=== PATIENT | female | born 1930 | race Caucasian/White ===

== ENCOUNTER 2019-09-16 19:18 | Inpatient (IN) | payer OTHER ==
[~2019-09-16] VITALS: Ht 160 cm; Wt 80.8 kg
[~2019-09-16 19:18] MED LIST: ASPIRIN81 M2 PO; SYNTHROID100 MC1 PO
[2019-09-16 19:56] VITALS: BP 131/74
[2019-09-16 22:05] LABS: BASOPHILS 1.5 % (0.0-2.0); EOSINOPHILS 1.7 % (0.0-3.0); HEMATOCRIT 36.7 % (37.0-47.0); LYMPHOCYTES 26.5 % (24.0-44.0); MCH 29.1 pg (26.0-34.0); MCHC 32.8 g/dL (28.0-37.0); MCV 88.7 fL (80.0-100.0); MONOCYTES 10.3 % (1.0-8.0); PLATELET COUNT 242 thou/uL (150-400); RBC 4.14 mil/uL (4.20-5.00); RDW 16.1 % (10.5-14.5); WBC 6.6 thou/uL (4.0-11.0)
[2019-09-16 22:17] LABS: URINE BILIRUBIN NEGATIVE (Negative); URINE BLOOD NEGATIVE (Negative); URINE CLARITY CLEAR; URINE COLOR YELLOW; URINE GLUCOSE-RANDOM* NEGATIVE (Negative); URINE KETONES NEGATIVE (Negative); URINE LEUKOCYTES-REFLEX NEGATIVE (Negative); URINE NITRITE-REFLEX NEGATIVE (Negative); URINE PROTEIN (DIPSTICK) NEGATIVE (Negative); URINE SPECIFIC GRAVITY 1.015 (1.005-1.035); URINE UROBILINOGEN 0.2 E.U./dl (0.2-1.0)
[2019-09-16 22:17] LABS: CALCIUM 9.1 mg/dL (8.5-10.1); CREATININE 1.2 mg/dL (0.6-1.0); POTASSIUM 3.9 mmol/L (3.5-5.1)
[2019-09-16 22:24] LABS: AMP/METHAMP Negative (Negative); BARBITURATES Negative (Negative); BENZODIAZEPINES Negative (Negative); COCAINE Negative (Negative); METHADONE Negative (Negative); OPIATES Negative (Negative); PCP Negative (Negative)
[2019-09-16 22:24] LABS: ALBUMIN 3.1 g/dL (3.4-5.0); DIRECT BILIRUBIN 0.1 mg/dL (<0.1-0.3); TOTAL BILIRUBIN 0.3 mg/dL (<0.1-1.0); TOTAL PROTEIN 7.6 g/dL (6.4-8.2)
[2019-09-17 00:50] VITALS: BP 134/71
[2019-09-17 01:25] VITALS: BP 138/70
--- NOTE | 2019-09-17 02:23 | NUR ---
PATIENT ADMITTED AND CAME TO [facility] BY WC WITH ER NURSE AND DAUGHTER AND SON IN LAW. DAUGHTER IS PATIENT'S DPOA. PATIENT ARRIVED AT 0130. PATIENT A/O X3. PT IS [place] AND DOES NOT OWN HEARING AIDS. PATIENT HAS TOP DENTURE THAT SHE WEARS AND NO DENTURES FOR BOTTOM GUMS. PATIENT IS VERY TIRED BUT DID ASK FOR SNACK. PATIENT GIVEN SF COOKIES AND ICECREAM. PATIENT IS CONTINENT OF B&B. PATIENT USES WALKER FOR MOBILITY IN ROOM AND SHORT DISTANCES. W/C FOR LONGER DISTANCES. VITAL SIGNS OBTAINED BY HOT WOUND SPRING PRODUCTION SUPERVISOR. WENT OVER CONSENTS AND FALL CONTRACT AND SIGNED BY DAUGHTER/DPOA. VISITATION HOURS AND CODE GIVEN TO DPOA. WELCOME PACKET TAKEN HOME BY DPOA TO REVIEW. PATIENT DOES NOT READ D/T MACULAR DEGENERATION. PATIENT ADMITTED FROM [facility] FOR SEXUAL INAPPROPRIATE BEHAVIORS AND AGITATION. PATIENT HAS BEEN TOLD BY HER PCP DR RITESH POP MD, A YEAR AGO THAT SHE DOES HAVE DEMENTIA. PATIENT WAS ADMITTED TO [facility] NOVEMBER 2018. PATIENT STARTED WITH INAPPROPRIATE BEHAVIOR 08/2019. PATIENT'S BELONGINGS INVENTORIED. PATIENT WANTS TO SLEEP IN HER CLOTHES TONIGHT. PATIENT IS USED TO SLEEPING IN A RECLINER BECAUSE SHE FEELS SAFER. I LET HER KNOW WE WILL KEEP SIDERAILS UP AND BED ALARM ON TO HELP HER FEEL SAFE FROM FALLING. SHE IS OKAY WITH THIS. PATIENT'S VSS 138/70 P68 R17 T98.3 AND 02 SAT ON ROOM AIR AT 96%. PATIENT WEIGHT IS 178.2. HT 5FT 3 IN. LBM 09/16/19. PATIENT MEDICAL HX OF DM2, HTN, HYPERTHYROID. PATIENT ON CARB CONTROL DIET AND NO ACCUCHECKS ORDERED AT THIS TIME. PATIENT HAS NKA. PATIENT HAS HAD HER THYROID REMOVED UNKNOWN DATE. PATIENT ALSO HAS 3 STENTS IN HER HEART. NO WOUNDS FOUND. DENIES PAIN. PATIENT ORIENTED TO ROOM. PATIENT IN BED FOR THE EVENING. PHYSICAL ASSESSMENT WNL. NO EDEMA. HEART REGULAR. LUNGS CTA BILAT. ORDERS AND MEDS BY DR SRIDHAR PARK AT 0100. CONSULT FOR DR SHON PARK CALLED TO [facility] AND SPOKE WITH HER AT 0250 BY PHONE. CONSULT ALSO FOR PT TO EVAL AND TREAT ALSO ORDERED. WILL CONTINUE TO MONITOR.
[2019-09-17] MEDS ORDERED: GLIPIZIDE 10 MG10 MG PO ×2 (03:15)
[2019-09-17] MEDS ORDERED: NAMENDA 5 MG TAB5 M1 PO (03:16)
[2019-09-17] MEDS ORDERED: LASIX 40 MG TAB40 MG PO (03:18)
--- NOTE | 2019-09-17 06:23 | NUR ---
PATIENT AWAKENED BY THIS NURSE AT 0615 TO PUT FALL RISK BAND ON PATIENT. PT VERY IRRITABLE FOR BEING AWAKENED. SHE DENIES PAIN AT THIS TIME. SHE STATES SHE JUST WANTS TO GET SOME MORE SLEEP. SHE HAS ONLY HAD CLOSE TO 4 HOURS. BED ALARM ON AND BED IN LOW POSITION.
[2019-09-17 08:17] VITALS: BP 148/50
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
[2019-09-17 10:47] VITALS: BP 148/50
--- NOTE | 2019-09-17 11:01 | NUR ---
ASSUMED CARE AT 0700 THIS MORNING. PT. UP, DRESSED AND ON THE UNIT SITTING QUIETLY AT A TABLE. SHE IS PLEASANT AND COOPERATIVE WITH STAFF. HER BLOOD SUGAR WAS TAKEN AND FOUND TO BE 119. TALKED TO TIANA ABOUT THIS. TIANA STATED WE NEED TO MONITOR THE BLOOD SUGAR TIMES 24 HOURS. PT. T[address] WITH DR. WALLER, 'S STUDENT, AND TIANA. SHE ATTENDED GROUPS WHEN NOT WITH OR ANOTHER PERSON. SHE TOOK HER MEDICATIONS WITHOUT DIFFICULTIES NOTED. SHE IS DENYING SI/HI OR AVH OF THIS WRITING.
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
[2019-09-17 16:45] LABS: FOLIC ACID 17.5 ng/mL (8.6-58.9); TSH 2.069 uIU/mL (0.358-3.740)
[2019-09-17 20:00] VITALS: BP 133/71
--- NOTE | 2019-09-17 23:24 | NUR ---
Care assumed of patient at 1915: Patient lying on couch sleeping in dayroom at start of shift. Patient woke for nursing assessment. Patient calm, pleasant and cooperative. Drowsy, presents with flat affect. Compliant with blood sugar monitoring. Patient provided sugar free snack, ate 100%. No medications prescribed for HS. Denies pain or discomfort. Denies SI/HI/AH/VH. No paranoia or delusional thoughts present. No inappropriate sexual behaviors observed or reported. Patient ambulating about unit with walker. Gait steady, good balance. Patient alert and oriented x2, occasional confusion and forgetfulness observed. Does not seem to be distressed or agitated when re-orientated. Patient assisted to the bathroom then bed. Patient has been resting well since going to bed.
[2019-09-18 00:09] LABS: GLYCOHEMOGLOBIN (HGB A1C) 7.7 % (4.8-5.6)
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
[2019-09-18 08:20] VITALS: BP 123/68
[2019-09-18 08:49] VITALS: BP 123/68
--- NOTE | 2019-09-18 11:45 | NUR ---
ZEKE contacted pt's daughter Deyanira to discuss plans for discharge; this morning in treatment team the psych doctor said pt will need to discharge back to [facility] by Saturday. SW team will continue to follow pt during her stay.
--- NOTE | 2019-09-18 13:05 | NUR ---
ZEKE received a return call from Deyanira. ZEKE explained to her that pt at this time does not meet criteria for placement and will need to be discharged by Saturday 09/22. Deyanira said she [facility] Deyanira then said she has been in communication with [facility], and they have a Medicaid bed; she asked ZEKE to send a referral to that facility. ZEKE contacted [facility] and spoke with Susana. ZEKE gave Judy some background on pt including that the behaviors described in pt's H&P that was given by the nursing facility she came from has not been seen on the unit since her arrival, and as a result she does not meet criteria to remain on the unit. Judy asked that a referral be faxed to [phone]. ZEKE faxed a referral to the number given. ZEKE team will continue to follow pt during her stay.
--- NOTE | 2019-09-18 13:30 | NUR ---
PT LYING ON COUCH IN DINNING ROOM. THIS LEACH CELL OPERATOR NEEDED TO HELP PT GET OFF TOILET AFTER BREAKFAST. PT WAS ABLE TO STAND-UP AFTER VOIDING AFTER LUNCH WITH MINIMAL ASSIST.
[2019-09-18 20:13] VITALS: BP 139/43
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
--- NOTE | 2019-09-19 02:52 | NUR ---
ASSUMED CARE FROM DAY SHIFT PT SLEEPING ON COUCH , AWAKEN TO TALK TO PT AND ASSESS. PT CALM COOPERATIVE, AND EASLIY FELL BACK TO SLEEP. HS SNACK EATEN. PT RESTED WELL THROUGHOUT FREQ ROUNDING. PT REMAINED IN DAY ROOM SLEEPING ON COUCH AWOKEN 2 TIMES REQESTING COFFEE. WILL CONTINUE WITH CURRENT PLAN OF CARE.
[2019-09-19 07:55] VITALS: BP 162/69
--- NOTE | 2019-09-19 10:58 | NUR ---
VISIBLE IN DAYROOM SO FAR THIS SHIFT-SLEEPING ON COUCH IN DAYROOM-WHEN ASKED TO ATTEND GROUP OR SIT UP TO ALLOW OTHERS TO WATCH TV BECOMES IRRITABLE MILDLY AGITATED "I DON'T WANT TO GO TO MY ROOM-REFUSING TO GO TO GROUP. INITALLY STATES WOULD TAKE FLU SHOT AND WHEN APPROACHED WITH INJECTION APPROX 10 MINUTES LATER STATES " I ALREADY HAD THAT AT MY OFFICE-STATES HAD 2-[address] VILLATORO OFFICE IN [place]." USES ROLLER WALKER FOR AMBULATION AND GAIT IS STEADY WITH ASSISTIVE DEVICE. APPETTITE GOOD-FEEDS SELF-DENIES C/O PAIN OR DISCOMFORT. DYSPHORIC MOOD-APPEARS UNKEMPT-CLOTHING RUMPLED AND HAIR UNCOMBED-OFFERED TO ASSIST WITH ADLS AND PT REFUSES. BLOOD SUGAR AT 0700 128-ORAL HYPOGLYCEMIC GIVEN PER ORDER. DID SHOW SOME SPONTANEOUS EXPRESSION AND SMILED WHEN SPEAKING OF AND HOW SHE HAD BEEN FOR 57 YEARS.
--- NOTE | 2019-09-19 11:32 | NUR ---
sitting quietly in dayroom upon initial ASSESSMENT THIS AM-SITING AWAY FROM PEERS AND MINIMAL SOCIAL INTERACTION OBSERVED SO FAR THIS SHIFT. DURING 1;1 INTERACTION WITH THIS RN STATES SEVERAL TIMES "I DON'T WANT TO BE HERE-I DON'T KNOW WHY I AM HERE-I AM NOT SICK LIKE THESE OTHER PEOPLE" REPORTS BEING SUSPICIOUS OF BROTHERS MOTIVES FOR PURSUING HOSPITILIZATION VEHEMENTLY DENIES ANY IDEA THAT FAMILY IS CONCERNED FOR WELFARE AND SAFTEY BECAUSE THE CARE ABOUT HER STATING "THEY JUST WANT THE MONEY" LATER ASKS THIS RN "DO THEY JUST PUT PEOPLE HERE TO GET THE MONEY FROM INSURANCE" ALSO STATES SHE BELIEVES ITEMS ARE BEING TAKEN FROM HER ROOM INCLUDING EYELINER AND A PENCIL;-BECOME UPSET WHEN STAFF TALKED ALOUD ABOUT THIS STATING "KEEP IT DOWN THAT IS BETWEEN YOU AND ME" DID TAKE AM MEDICATIONS AFTER BEING INFORMED OF NAMES AND DOSES AND APPEARS KNOWLEDGABLE ABOUT RX. DENIES C/O PAIN. GAIT STEADY WITHOUT ASSISTIVE DEVICES.
[2019-09-19 17:21] VITALS: BP 172/90
--- NOTE | 2019-09-19 17:26 | NUR ---
HTN-BP NOTED TO BE SLIGHTLY ELEVATED THIS AM AT 162/69-PT DENIES CHANCE,VISUAL DISTURBANCE ETC. DOES REPORT FEELING ANXIOUS AND WANTING TO GO HOME STATING "THAT IS PROBABLY MAKING MY BP GO UP" RECHECKED ON MACHINE AT 1300 AND WAS 154/84-RECHECKED WITH VERONICA CUFF AT APPROX 1800 AND IS 172/90-PT AGAIN DENIES ANY CHANCE,VISUAL DISTURBANCE ETC AND RATES ANXIETY A 05/23-R/T "BEING HERE" "THERE ARE JUST SO MANY CRAZY PEOPLE HERE I CAN'T STAND IT" HYDRALAZINE 10MG GIVEN PO PRN.
[2019-09-19 18:24] VITALS: BP 148/60
--- NOTE | 2019-09-19 18:27 | NUR ---
BP RECHECKED MANUALLY AND IS 148/64 P 84 AND REGUALAR-PT RESTING QUIETLY IN ROOM-DENIES COMPLAINTS
[2019-09-19 21:14] VITALS: BP 147/40
--- NOTE | 2019-09-20 02:59 | NUR ---
ASSUMED CARE FROM DAY SHIFT PT , PT LYING IN BED RESTING, DENIES VOICED NO CONCERNS , BUT APPEARS AGITATED WHEN ASSESSMENT AND QUESTIONS ASK ON HOW SHE FEELS. PT THEN AFTER 3 HOURS PT UP IN DAY ROOM AWAKE REQUESTING SNACK. PT CALM AND MORE COOPERTIVE. PT AMBULATING WITH WALKER GAIT STEADY. WILL CONITNUE WITH CURRENT PLAN OF CARE, WILL REPORT CHANGES OR ABNORMAL FINDINGS.
--- NOTE | 2019-09-20 05:44 | NUR ---
LAB HER THIS AM TO DRAW BLOOD FROM PATIENT AND PT REFUSED, EVEN AFTER 10-15 MINS OF TALKING WITH PATIENT AND THAT THE DOCTOR ORDER THE BLOOD TO BE DRAWN. PT STATES "ONLY PEOPLE IS STICKINGIS FINGER FOR A SUGAR" , NOTE LEFT FOR DR NEVES TO INFORM HIM OF PATIENT REFUSAL.
[2019-09-20 09:32] VITALS: BP 139/48
[2019-09-20 09:45] VITALS: BP 139/48
--- NOTE | 2019-09-20 13:17 | NUR ---
Zeke spoke with Pt's daughter, Deyanira, during visitation time. Deyanira was concerned about Pt not having a placement when discharged and wanted to know what Dr. Coyne recommendation was for placement. ZEKE informed Deyanira that according to the notes in the chart it was recommended Pt return to [facility] as the Pt no longer met critiria for hospital. Deyanira was concerned that she did not wish for Pt to return to [facility] out of fear of retaliation. Deyanira also stated she was working with SYLVIA Cardona to find another intermediate for the Pt. Zeke explained that when Pt is discharged from [facility] we cannot keep the Pt and Pt will need to return to [facility] unless the family has secured another placement for the Pt. I assusred Deyanira that we are willing to send referals and information to any facility at her request. Zeke asked if Pt was given a 30day notice by the intermediate. Deyanira stated that a notice was given on 08/24/2019 however the intermediate retracted the notice due to not doing thier due dilligence. Deyanira stated she returned to the intermediate after Pt was hospitalized to remove Pt's belongings and was not sure if Pt had a bed at [facility]. ZEKE called [facility] and first spoke with Madeleine. Zeek asked if PT was still a resident or had been discharged. Madeleine informed Pt was discharged on 09/16/2019. Upon asking about a 30day notice ZEKE was sent to Obdulia, manager oracle. Seymour informed that Pt was sent to [facility] to be evaluated and Pt's bed at the facility was still open for Pt to return. ZEKE informed Obdulia of the information Madeleine gave and asked if a notice was give. Obdulia stated Zeke would need to speak with their health social work professor, Dee on Saturday concerning the matter. ZEKE provided Seymour with the direct phone number to SYLVIA Cardona to be contacted concerning the matter. ZEKE informed Deyanira of the PC. ZEKE explained to Deyanira that intermediate have to give the Pt a 30 day notice. ZEKE informed Deyanira to follow up with SYLVIA Cardona on Saturday concerning this matter. This will need follow up by ZEKE
--- NOTE | 2019-09-20 14:34 | NUR ---
Assumed care 0700. Pt at the activity room. Able to ambulate around with walker. Lab called that she refused blood drawal at shift manager. 1045The daughter came and talked to her but patient refused for lab drawal. Agreed on Im B12 injection. Pt gets agitated when you keep on asking her how she is doing, she states " I'm waiting for my daughter to get me a place to go." Pt participated on the group therapy. Calm and cooperative with other care besides blood drawals and any kind of shots. 1430: At the activity room relaxed. Will continue with the plan of care.
[2019-09-20 20:00] VITALS: BP 168/84
[2019-09-21 02:37] VITALS: BP 111/65
--- NOTE | 2019-09-21 02:43 | NUR ---
ASSUMED CARE FROM DAY SHIFT PT SLEEPING ON COUCH, ,WHEN ASSESED, PT BECAME ANGRY WHEN ASK ABOUT BOWEL MOVEMENT, " STATES ILL PUNCH IN NOSE IF YOU ASK ME ANYTHING ELSE" PT ON AND OFF THE COUCH DURING THE SHIFT GAIT STEADY WITH WALKER. BP STABLE THIS SHIFT . NO CONCERNS VOICED. WILL CONINTUE WITH CURRENT PLAN OF CARE AND WILL REPORT CHANGES.
[2019-09-21 08:31] VITALS: BP 139/70
--- NOTE | 2019-09-21 12:43 | NUR ---
NYLA spoke with pt's demetria Mcmillan who asked SW to fax updates to [facility]. [facility] faxed updates to [facility]. Nyla spoke with Judy who said they have decided to accept pt, but are just waiting on insurance authorization. She said she will contact [facility]LA with a time for 09/22. SW team will continue to follow pt during her stay.
--- NOTE | 2019-09-21 13:13 | NUR ---
DYSPHORIC MOOD THIS AM-WHEN APPROACHED FOR AM MEDS AND ASSESSMENT STATES "JUST LEAVE ME BE LET ME FINISH MY BREAKFAST. WITHDRAWN TO ROOM-NO NOTED INTERACTION WITH PEER GROUP AND REFUSES TO ATTEND GROUP. DURING 1;1 DDI STATE "I DON'T LIKE BEING HERE THIS PLACE IS MAKING ME CRAZY THESE PEOPLE ARE ALL CRAZY" DENIES PAIN. APPETITE GOOD. AMBULATES WITH ROLLER WALKER IN [place] AND TOLERATES THIS ACTIVITY WELL. GAIT STEADY WITH ASSISTIVE DEVICES. NO NOTED OR REPORTED PSYCHOSIS/AV HALLUCINATIONS. DENIES SI/SH-ORIENTED TO PERSON,PLACE -NO TO DATE STATING "IT DOESN'T MATTER IN HERE"
--- NOTE | 2019-09-21 14:24 | NUR ---
ZEKE spoke with Dania with [facility] and arranged for them to transport pt at 1530 on 09/22/19. ZEKE team will continue to follow pt durin her stay. [facility] [address] [place] [phone]
--- NOTE | 2019-09-21 16:49 | NUR ---
ZEKE contacted [facility] to speak to Judy as she had not heard if pt's insurance accepted her stay. The dental receptionist said she does not believe a decision has been made yet by insurace. ZEKE asked her to have Judy call her in the morning. ZEKE team will continue to follow pt during her stay.
[2019-09-21 19:40] VITALS: BP 163/65
--- NOTE | 2019-09-22 04:23 | NUR ---
TOOK OVER CARE OF THIS PATIENT AT 1930. PATIENT ALERT AND ORIENTED XPERSON AND PLACE. HEAD IN TUCK CHIN POSITION. NEED TO LIFT HER CHIN FOR HER TO TAKE HER MEDS. DENIES PAIN. WENT TO BED LATE. TOOK MEDS WITH COAXING. PATIENT APPEARED TO BE ASLEEP MOST OF NIGHT.
--- NOTE | 2019-09-22 04:56 | NUR ---
TOOK OVER CARE OF THIS PATIENT AT 1930. PATIENT ALERT AND ORIENTED XPERSON AND PLACE. SLEPT ON COUCH IN BIG ROOM. UP AND ABOUT WITH WALKER. NO PROBLEMS TAKING MEDS. APPEARS TO BE MANZANITA. SLEPT OFF AND ON DURING NIGHT. DENIES PAIN.
[2019-09-22 09:35] VITALS: BP 163/65
--- NOTE | 2019-09-22 10:02 | NUR ---
THE PATIENT HAS BEEN QUIET AND CALM. SHE REFUSED HER VITAMIN INJECTION AND ASSESSMENT THIS MORNING. THE NURSE WILL TRY AGAIN LATER. THE PATIENT WAS IN THE DAY ROOM EATING BREAKFAST THIS MORNING. SHE WAS ENOCOURAED TO TAKE HER MEDICATION AND AFTER EXPLAINING WHY SHE NEED TO TAKE HER MEDICATIONS, THE PATIENT TOOK HER MEDICATION. THE PATIENT BECAME COMBATIVE WHEN SHE WAS TOLD ABOUT HER VITAMIN INJECTION. SHE WANTED TO GO BACK TO SLEEP AFTER BREAKFAST AND DID NOT WANT TO ATTEND GROUP. SHE AMBULATES WITH A WALKER AND IS UP AD RITESH THE PATIENT MAY NEED ASSIST WITH ADL'S. SHE WEARS BRIEFS BUT HAS BRP. SHE IS ALERT AND ORIENTED TO PLACE AND SELF. CONTINUE TO MONITOR THE PATIENT.
[2019-09-22] MEDS ORDERED: ASPIRIN81 M2 PO (11:28)
[2019-09-22] MEDS ORDERED: NAMENDA 5 MG TAB5 M1 PO (11:29)
[2019-09-22] MEDS ORDERED: LASIX 20 MG TAB20 MG PO (11:29)
[2019-09-22] MEDS ORDERED: RISPERDAL 1 MG T1 MG PO (11:29)
[2019-09-22] MEDS ORDERED: GLIPIZIDE 5 MG T5 MG PO (11:34)
[2019-09-22] MEDS ORDERED: SYNTHROID112 MC1 PO (11:35)
[2019-09-22] MEDS ORDERED: B12INJ PO (11:40)
[2019-09-22] MEDS ORDERED: FOLIC ACID1 MG PO (11:41)
--- NOTE | 2019-09-22 12:46 | NUR ---
ZEKE D/C note ZEKE spoke with Deyanira who came to the unit and said that [facility] had accepted pt and so she was there to pick her mom up; she said her mom is prepared to leave today. ZEKE said she had not heard back from Judy yet stating that pt's insurance was accepted. ZEKE received a call from Judy stating that pt's insurance has been accepted. ZEKE relayed this information to Deyanira and also provided an update to the psych doctor who said patient can go today. ZEKE prepared discharge documents and updated pt's nurse of her departure today. ZEKE faxed D/C paperwork to [facility]. No other needs for ZEKE team to address at this time.
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
== END 2019-09-22 12:25 | DRG 57 ==
LOC: ER 19:18 → SBH 23:04 → EROBS 23:04 → SBH 09-17 00:59
PROVIDERS: Emergency Medicine; ADMIT Psychiatry & Neurology Psychiatry
DX: G30.9 Alzheimer's disease, unspecified (principal); F02.81 Dementia in other diseases classified elsewhere, unspecified severity, with behavioral disturbance; F01.51 Vascular dementia, unspecified severity, with behavioral disturbance; N17.9 Acute kidney failure, unspecified; I25.10 Atherosclerotic heart disease of native coronary artery without angina pectoris; N18.3 Chronic kidney disease, stage 3 (moderate); E53.8 Deficiency of other specified B group vitamins; E11.22 Type 2 diabetes mellitus with diabetic chronic kidney disease; I12.9 Hypertensive chronic kidney disease with stage 1 through stage 4 chronic kidney disease, or unspecified chronic kidney disease; R26.9 Unspecified abnormalities of gait and mobility; E66.9 Obesity, unspecified; J44.9 Chronic obstructive pulmonary disease, unspecified; E89.0 Postprocedural hypothyroidism; Z66 Do not resuscitate; Z68.31 Body mass index [BMI] 31.0-31.9, adult; Z95.820 Peripheral vascular angioplasty status with implants and grafts; Z79.82 Long term (current) use of aspirin; Z79.899 Other long term (current) drug therapy; Z28.21 Immunization not carried out because of patient refusal
CPT/HCPCS: 10880